=== PATIENT | female | born 2000 | race Hispanic/Latino ===

== ENCOUNTER 2023-12-26 16:30 | Outpatient (CLI) | payer OTHER ==
[~2023-12-26] VITALS: Ht 165.1 cm; Wt 81.6 kg
[2023-12-26 16:57] VITALS: BP 113/69
[2023-12-26 18:36] LABS: HEMOGLOBIN 10.9 g/dl (12.0-15.5); MEAN CORPUSCULAR HEMOGLOBIN 27.4 pg (27.0-33.0); MEAN CORPUSCULAR VOLUME 82.9 fl (80.0-96.0); PLATELET COUNT, AUTOMATED 216 10^3/uL (150-450); RED BLOOD COUNT 3.98 10^6/uL (4.00-5.40); WHITE BLOOD COUNT 8.2 10^3/uL (4.0-10.0)
[2023-12-26 19:13] LABS: HEPATITIS B SURFACE ANTIGEN NEGATIVE (NEGATIVE)
[2023-12-26 19:26] LABS: HIV 1&2 SCREEN NEGATIVE (NEGATIVE)
[2023-12-26 19:34] LABS: HEPATITIS C VIRUS ABY INDEX < 0.02 INDEX (<0.8)
[2023-12-26 20:20] LABS: GC DNA AMPLIFICATION NEGATIVE (NEGATIVE)
== END 2023-12-26 18:35 | disposition home or self-care (01) ==
LOC: M LDO 16:30
PROVIDERS: ATTEND Advanced Practice Midwife
DX: O47.1 False labor at or after 37 completed weeks of gestation (principal); Z3A.40 40 weeks gestation of pregnancy; Z83.3 Family history of diabetes mellitus
CPT/HCPCS: 36415; 59025; 85027; 86762; 86780; 86803; 86850; 86900; 86901; 87081; 87340; 87389; 87810; 87850; G0463

== ENCOUNTER 2023-12-30 07:10 | Inpatient (IN) | payer OTHER ==
[~2023-12-30] VITALS: Ht 165.1 cm; Wt 83.1 kg
[2023-12-30] VITALS (8 sets, daily range): BP systolic 102–128; BP diastolic 58–76; O2SAT 95
[2023-12-30] MEDS ORDERED: HOME MED LIST COMPLETE! XX SCH (07:25)
[2023-12-30 08:01] LABS: HEMATOCRIT 33.4 % (36.0-47.0); HEMOGLOBIN 10.7 g/dl (12.0-15.5); MEAN CORPUSCULAR HEMOGLOBIN 26.8 pg (27.0-33.0); MEAN CORPUSCULAR VOLUME 83.7 fl (80.0-96.0); PLATELET COUNT, AUTOMATED 178 10^3/uL (150-450); RED BLOOD COUNT 3.99 10^6/uL (4.00-5.40); WHITE BLOOD COUNT 6.2 10^3/uL (4.0-10.0)
[2023-12-30] MEDS ORDERED: LR 1,000 ML IV SCH ×2 (08:35)
[2023-12-30] MEDS ORDERED: OXYTOCIN DRIP 30 UNITS in IV 1 EA IV PRN (08:35)
[2023-12-30] MEDS ORDERED: LIDOCAINE 1% MDV 20ML VIAL INFIL PRN (08:35)
[2023-12-30] MEDS ORDERED: OXYTOCIN DRIP 30 UNITS in IV 1 EA IV SCH (08:35)
[2023-12-30] MEDS ORDERED: OXYTOCIN INJ 10UNITS/ML 1ML VIAL IM PRN (08:35)
[2023-12-30] MEDS ORDERED: METHYLERGONOVINE MALEATE 0.2MG/ML 1ML VIAL IM PRN (08:35)
[2023-12-30] MEDS ORDERED: CARBOPROST TROMETHAMINE 250 MCG/ML AMP IM PRN (08:35)
[2023-12-30] MEDS ORDERED: OXYTOCIN INJ 10UNITS/ML 1ML VIAL IV PRN (08:35)
[2023-12-30] MEDS ORDERED: TRANEXAMIC ACID INJection 1,000 MG in NS 100 ML IV PRN (08:35)
[2023-12-30] MEDS: miSOPROStol 50MCG 1/2 TABLET PO PRN (09:35)
[2023-12-30 11:44] LABS: HEPATITIS C VIRUS ABY INDEX < 0.02 INDEX (<0.8)
[2023-12-30] MEDS: PROMETHAZINE 25MG/ML 1ML VIAL IV ONE (23:25)
[2023-12-30] MEDS: BUTORPHANOL 2 MG/ML 1ML VIAL IV ONE (23:26)
[2023-12-31] MEDS ORDERED: ePHEDrine SULFATE 25 MG/5 ML(5MG/ML) SYRINGE IVP PRN (04:10)
[2023-12-31] MEDS ORDERED: EPIDURAL/PCA KEYS XX PRN (04:10)
[2023-12-31] MEDS ORDERED: diphenhydrAMINE 50MG/ML VIAL IV PRN (04:10)
[2023-12-31] MEDS ORDERED: ONDANSETRON 4MG 2ML VIAL IV PRN (04:10)
[2023-12-31] MEDS ORDERED: NALOXONE INJ 0.4MG/1ML VIAL IV PRN (04:10)
[2023-12-31] MEDS: FENTANYL/ROPIVACAINE/NACL BAG 100 ML EPIDURAL SCH (04:10)
[2023-12-31] MEDS ORDERED: LR 500 ML IV PRN (04:10)
[2023-12-31] MEDS: LACTATED RINGER'S 1000 ML IV STA (05:58)
[2023-12-31] MEDS ORDERED: DIBUCAINE 1% OINTMENT 30GM TOP PRN (07:10)
[2023-12-31] MEDS ORDERED: DOCUSATE SODIUM 100MG CAPSULE PO PRN (07:10)
[2023-12-31] MEDS ORDERED: IBUPROFEN 600MG TAB PO PRN (07:10)
[2023-12-31] MEDS ORDERED: ACETAMINOPHEN 325 MG TAB PO PRN (07:10)
[2023-12-31] MEDS ORDERED: RHOGAM 300MCG (1500IU) INJ IM SCH (07:10)
[2023-12-31] MEDS ORDERED: ACETAMINOPHEN 500 MG TAB PO PRN (07:10)
[2023-12-31] MEDS ORDERED: METHYLERGONOVINE MALEATE 0.2 MG TAB PO PRN (07:10)
[2023-12-31 07:17] LABS: CORD GAS ABE V -10.4; CORD GAS HCO3 V 18.9 MMOL/L; CORD GAS O2 SAT V 59.1 %; CORD GAS PCO2 V 54.5 mmHg; CORD GAS PH V 7.157 UNITS; CORD GAS PO2 V 31.3 mmHg; CORD GAS SBC V 15.6 MMOL/L; CORD GAS TCO2 V 20.5 MMOL/L
[2023-12-31 07:18] VITALS: BP 113/56
[2023-12-31 07:19] LABS: CORD GAS ABE A -9.1; CORD GAS HCO3 A 18.1 MMOL/L; CORD GAS O2 SAT A 54.5 %; CORD GAS PCO2 A 44.1 mmHg; CORD GAS PH A 7.232 UNITS; CORD GAS PO2 A 25.8 mmHg; CORD GAS SBC A 16.4 MMOL/L; CORD GAS TCO2 A 19.5 MMOL/L
[2023-12-31 07:33] VITALS: BP 107/59
[2023-12-31] MEDS: OXYTOCIN DRIP 30 UNITS in IV 1 EA IV PRN (07:37)
[2023-12-31 07:48] VITALS: BP 113/65
[2023-12-31 08:03] VITALS: BP 117/68
[2023-12-31] MEDS: PRENATAL VITAMINS CHEWABLE TABLET PO SCH (09:00)
[2023-12-31 09:30] VITALS: BP 115/66; O2SAT 98
[2023-12-31] MEDS: IBUPROFEN 800 MG TAB PO PRN (14:50)
[2023-12-31 18:00] VITALS: BP 111/62; O2SAT 99
[2024-01-01 05:59] VITALS: BP 107/70; O2SAT 98
[2024-01-01 18:00] VITALS: BP 130/58; O2SAT 98
[2024-01-02 06:00] VITALS: BP 99/54; O2SAT 97
[2024-01-02] MEDS: MEASLES,MUMPS,RUBELLA VACCINE INJ (MMR-II) SC.IMMUN ONE (09:00)
== END 2024-01-02 18:30 | disposition home or self-care (01) | DRG 807 ==
LOC: M LDI 07:10 → M OBS 12-31 09:18
PROVIDERS: ADMIT Obstetrics & Gynecology; ATTEND Obstetrics & Gynecology
PROC: 3E033VJ Introduction of Other Hormone into Peripheral Vein, Percutaneous Approach (ICD-10-PCS; 2023-12-30)
PROC: 10E0XZZ Delivery of Products of Conception, External Approach (ICD-10-PCS; principal; 2023-12-31)
DX: O48.0 Post-term pregnancy (principal); Z37.0 Single live birth; Z3A.40 40 weeks gestation of pregnancy